=== PATIENT | female | born 1965 | race Caucasian/White ===

== ENCOUNTER 2017-02-22 20:31 | Inpatient (IN) | payer MEDICAID ==
[~2017-02-22] VITALS: Ht 170.2 cm; Wt 68.0 kg
[2017-02-22 20:40] VITALS: BP_SYST 161
[2017-02-22] MEDS ORDERED: NACL 0.9% 1,000 ML IV ONE (22:00)
[2017-02-22] MEDS ORDERED: LORazepam 2 MG/ML VIAL IVP ONE (22:00)
[2017-02-22] MEDS ORDERED: KETOROLAC TROMETHAMINE 30 MG VIAL IVP ONE (22:00)
[2017-02-22 22:25] LABS: BASOPHILS % (AUTO) 0.1 % (0.0-2.0); EOSINOPHILS % (AUTO) 0.3 % (0.0-4.0); HEMATOCRIT 32.5 % (36-48); HEMOGLOBIN 10.9 g/dL (12.0-16.0); LYMPHOCYTES # (AUTO) 1.3 K/uL (1.0-5.5); MEAN CORPUSCULAR HEMOGLOBIN 31 pg (27-31); MEAN CORPUSCULAR HGB CONC 34 % (32-36); MEAN CORPUSCULAR VOLUME 92 fL (79.0-98.0); MONOCYTES # (AUTO) 0.7 K/uL (0.0-1.0); MONOCYTES % (AUTO) 6.9 % (1.7-9.3); NEUTROPHILS # (AUTO) 8.4 K/uL (1.8-7.7); NEUTROPHILS % (AUTO) 80.7 % (40.0-70.0); PLATELET COUNT (AUTO) 406 K/uL (130-430); RED BLOOD CELL COUNT(AUTO) 3.52 MIL/uL (4.2-6.2); RED CELL DISTRIBUTION WIDTH 12.3 % (9.0-15.0); WHITE BLOOD COUNT (AUTO) 10.4 K/uL (4.8-10.8)
[2017-02-22] MEDS ORDERED: LORazepam 2 MG/ML VIAL (FOR ER USE) ONE (22:27)
[2017-02-22 22:29] LABS: CALCIUM 8.6 mg/dL (8.4-11.0); CREATININE 0.58 mg/dL (0.55-1.30); POTASSIUM 3.5 mmol/L (3.5-5.1)
[2017-02-22 22:32] LABS: PROTHROMBIN TIME 10.6 SECS (9.5-12.5)
[2017-02-22 22:34] LABS: ALBUMIN 2.8 g/dL (3.4-4.8); TOTAL BILIRUBIN 0.5 mg/dL (0.0-1.0); TOTAL PROTEIN, SERUM 7.6 g/dL (6.4-8.3)
[2017-02-22] MEDS ORDERED: PIPERACILLIN/TAZO 3.375 GM in NS 50 ML IV ONE (23:15)
[2017-02-22] MEDS ORDERED: CYM30 PO (23:50)
[2017-02-23] VITALS (7 sets, daily range): BP systolic 112–137
[2017-02-23] MEDS ORDERED: PIPERACILLIN/TAZOBACTAM 3.375 GM/VIAL (ZOSYN) IV ONE (00:06)
[2017-02-23] MEDS ORDERED: MINERAL OIL 30 ML UDC PO ONE (00:15)
[2017-02-23] MEDS ORDERED: ACETAMINOPHEN 325 MG TABLET PO PRN ×2 (00:15→00:45)
[2017-02-23] MEDS ORDERED: MAGNESIUM CITRATE 300 ML ORAL SOLUTION PO ONE (00:15)
[2017-02-23] MEDS: LORazepam 1 MG TABLET PO PRN (05:40)
[2017-02-23] MEDS ORDERED: PHENOL/MENTHOL 14.5 MG LOZENGE MM PRN (07:00)
[2017-02-23 07:57] LABS: IRON (SERUM) 20 mcg/dL (37-145); TOTAL IRON BIND. CAPACITY 189 ug/dL (250-450)
[2017-02-23] MEDS: DULoxetine HCL 30 MG CAPSULE.DR (CYMBALTA) PO SCH (08:40)
[2017-02-23] MEDS: DOCUSATE SODIUM 250 MG CAPSULE PO SCH ×2 (08:40→21:02)
[2017-02-23] MEDS: traMADol HCL HCL 50 MG TABLET (ULTRAM) PO PRN ×3 (08:51→21:02)
[2017-02-23] MEDS: AZITHROMYCIN 500 MG in NS 250 ML IV SCH (11:02)
[2017-02-23] MEDS ORDERED: ALBUTEROL SULFATE 0.083% 2.5 MG/3 ML VIAL.NEB INH PRN (13:15)
[2017-02-23] MEDS ORDERED: IPRATROPIUM BROM 0.5 MG/2.5 ML VIAL.NEB (ATROVENT) INH PRN (13:15)
[2017-02-23] MEDS: PIPERACILLIN/TAZO 3.375/DEX-IS 50 ML IV SCH ×2 (13:21→18:11)
[2017-02-23 15:22] LABS: BILIRUBIN,URINE NEGATIVE (NEGATIVE); BLOOD, URINE NEGATIVE (NEGATIVE); CLARITY/URINE CLEAR (CLEAR); COLOR,URINE YELLOW (YELLOW); GLUCOSE,URINE NEGATIVE (NEGATIVE); KETONES,URINE NEGATIVE (NEGATIVE); LEUKOCYTE ESTERASE ,URINE NEGATIVE (NEGATIVE); NITRITE, URINE NEGATIVE (NEGATIVE); PH,URINE 6.5 (5.0-8.0); PROTEIN URINE NEGATIVE (NEGATIVE)
[2017-02-23 15:49] LABS: BENZODIAZEPINE, URINE POSITIVE (NEG <=150); OPIATE, URINE POSITIVE (NEG <=100)
[2017-02-23 15:50] LABS: BARBITURATE, URINE NEGATIVE (NEG <=200); CANNABINOID, URINE NEGATIVE (NEG <=50); COCAINE, URINE NEGATIVE (NEG <=150); METHAMPHETAMINES SCREEN,URINE NEGATIVE (NEG <=500); PHENCYCLIDINE SCREEN,URINE NEGATIVE (NEG <=25); UR TRICYCLIC ANTIDEPRESSANTS NEGATIVE (NEG <=300); URINE AMPHETAMINE NEGATIVE (NEG <=500); URINE METHADONE NEGATIVE (NEG <=200); URINE OXYCODONE SCREEN NEGATIVE (NEG <=100); URINE PROPOXYPHENE SCREEN NEGATIVE (NEG <=300)
[2017-02-23] MEDS ORDERED: BISACODYL 5 MG TABLET.DR (DULCOLAX) PO ONE (17:00)
[2017-02-23] MEDS: ONDANSETRON HCL 4 MG/2 ML VIAL IVP PRN (17:42)
[2017-02-23] MEDS ORDERED: GOLYTELY / COLYTE SOLUTION 4 LITERS PO ONE (18:00)
[2017-02-23] MEDS: IPRATROPIUM BROM 0.5 MG/2.5 ML VIAL.NEB (ATROVENT) INH SCH (19:25)
[2017-02-23] MEDS: ALBUTEROL SULFATE 0.083% 2.5 MG/3 ML VIAL.NEB INH SCH (19:25)
[2017-02-23] MEDS: MULTIVITS,CA,MINERALS/IRON/FA 1 TABLET PO SCH (21:01)
[2017-02-23] MEDS ORDERED: IBUPROFEN 800 MG TABLET PO PRN (23:00)
[2017-02-24 00:03] VITALS: BP_SYST 133
[2017-02-24] MEDS: PIPERACILLIN/TAZO 3.375/DEX-IS 50 ML IV SCH ×5 (00:34→23:30)
[2017-02-24] MEDS: IPRATROPIUM BROM 0.5 MG/2.5 ML VIAL.NEB (ATROVENT) INH SCH ×4 (00:37→19:41)
[2017-02-24] MEDS: ALBUTEROL SULFATE 0.083% 2.5 MG/3 ML VIAL.NEB INH SCH ×4 (00:37→19:41)
[2017-02-24 04:14] VITALS: BP_SYST 114
[2017-02-24 06:25] LABS: BASOPHILS # (AUTO) 0.1 K/uL (0.0-0.2); BASOPHILS % (AUTO) 0.5 % (0.0-2.0); EOSINOPHILS # (AUTO) 0.1 K/uL (0.0-0.4); EOSINOPHILS % (AUTO) 0.9 % (0.0-4.0); HEMATOCRIT 30.9 % (36-48); HEMOGLOBIN 10.6 g/dL (12.0-16.0); LYMPHOCYTES # (AUTO) 1.8 K/uL (1.0-5.5); LYMPHOCYTES % (AUTO) 16.7 % (20.5-51.5); MEAN CORPUSCULAR HEMOGLOBIN 32 pg (27-31); MEAN CORPUSCULAR HGB CONC 34 % (32-36); MEAN CORPUSCULAR VOLUME 93 fL (79.0-98.0); MONOCYTES # (AUTO) 0.8 K/uL (0.0-1.0); MONOCYTES % (AUTO) 7.1 % (1.7-9.3); NEUTROPHILS # (AUTO) 8.2 K/uL (1.8-7.7); NEUTROPHILS % (AUTO) 74.8 % (40.0-70.0); PLATELET COUNT (AUTO) 393 K/uL (130-430); RED BLOOD CELL COUNT(AUTO) 3.34 MIL/uL (4.2-6.2); RED CELL DISTRIBUTION WIDTH 12.5 % (9.0-15.0)
[2017-02-24] MEDS ORDERED: MEPERIDINE HCL/PF 100 MG/ML AMP ONE ×2 (06:38)
[2017-02-24] MEDS ORDERED: SIMETHICONE 40 MG/0.6 ML ML ONE (06:39)
[2017-02-24] MEDS ORDERED: MIDAZOLAM HCL 5 MG/5 ML VIAL ONE ×2 (06:39)
[2017-02-24 06:50] LABS: ALBUMIN 2.3 g/dL (3.4-4.8); CREATININE 0.44 mg/dL (0.55-1.30); FREE T4 (FREE THYROXINE) 0.9 ng/dL (0.6-1.6); POTASSIUM 4.1 mmol/L (3.5-5.1); TOTAL BILIRUBIN 0.6 mg/dL (0.0-1.0); TOTAL PROTEIN, SERUM 7.4 g/dL (6.4-8.3)
[2017-02-24] MEDS ORDERED: MEPERIDINE HCL/PF 100 MG/ML AMP IV ONE ×2 (07:08→07:14)
[2017-02-24] MEDS ORDERED: MIDAZOLAM HCL 5 MG/5 ML VIAL IVP ONE ×5 (07:10→07:20)
[2017-02-24] MEDS ORDERED: SORBITOL 70% SOLUTION, 30 ML UDBTL PO ONE (07:45)
[2017-02-24 07:46] LABS: CALCIUM 8.7 mg/dL (8.4-11.0); THYROID STIMULATING HORMONE 0.23 uIu/mL (0.34-4.82)
[2017-02-24] MEDS: MULTIVITS,CA,MINERALS/IRON/FA 1 TABLET PO SCH ×2 (09:00→20:56)
[2017-02-24] MEDS: DULoxetine HCL 30 MG CAPSULE.DR (CYMBALTA) PO SCH (09:00)
[2017-02-24 09:25] VITALS: BP_SYST 118
[2017-02-24] MEDS: LACTULOSE 20 GM/30 ML UDC PO SCH ×4 (09:41→20:56)
[2017-02-24] MEDS: DOCUSATE SODIUM 250 MG CAPSULE PO SCH ×2 (09:41→20:56)
[2017-02-24] MEDS: ONDANSETRON HCL 4 MG/2 ML VIAL IVP PRN (09:41)
[2017-02-24] MEDS: POLYETHYLENE GLYCOL 3350, 17 GM/ POWD.PACK PO SCH ×4 (09:41→20:55)
[2017-02-24] MEDS: AZITHROMYCIN 500 MG in NS 250 ML IV SCH (09:53)
[2017-02-24] MEDS ORDERED: SUMAtriptan SUCCINATE 50 MG TABLET PO ONE (12:00)
[2017-02-24 12:07] VITALS: BP_SYST 117
[2017-02-24] MEDS: INDOMETHACIN 25 MG CAPSULE(INDOCIN) PO SCH ×2 (15:44→20:57)
[2017-02-24 16:15] VITALS: BP_SYST 120
[2017-02-24] MEDS ORDERED: BISACODYL 5 MG TABLET.DR (DULCOLAX) PO ONE (17:00)
[2017-02-24] MEDS: SOD FERRIC GLUC COMPLEX/SUC 125 MG in NS 100 ML IV SCH (17:59)
[2017-02-24] MEDS: traMADol HCL HCL 50 MG TABLET (ULTRAM) PO PRN (18:13)
[2017-02-24] MEDS ORDERED: MAGNESIUM CITRATE 300 ML ORAL SOLUTION PO ONE (19:00)
[2017-02-24 19:30] VITALS: BP_SYST 114
[2017-02-25 00:26] VITALS: BP_SYST 120
[2017-02-25] MEDS: IPRATROPIUM BROM 0.5 MG/2.5 ML VIAL.NEB (ATROVENT) INH SCH ×4 (00:54→19:39)
[2017-02-25] MEDS: ALBUTEROL SULFATE 0.083% 2.5 MG/3 ML VIAL.NEB INH SCH ×4 (00:55→19:39)
[2017-02-25] MEDS: traMADol HCL HCL 50 MG TABLET (ULTRAM) PO PRN ×2 (02:10→08:23)
[2017-02-25] MEDS: LORazepam 1 MG TABLET PO PRN ×2 (03:09→20:40)
[2017-02-25 04:07] VITALS: BP_SYST 110
[2017-02-25] MEDS: PIPERACILLIN/TAZO 3.375/DEX-IS 50 ML IV SCH ×4 (06:27→23:37)
[2017-02-25 07:12] LABS: BASOPHILS % (AUTO) 0.3 % (0.0-2.0); EOSINOPHILS # (AUTO) 0.1 K/uL (0.0-0.4); EOSINOPHILS % (AUTO) 1.1 % (0.0-4.0); HEMATOCRIT 28.2 % (36-48); HEMOGLOBIN 9.5 g/dL (12.0-16.0); LYMPHOCYTES # (AUTO) 1.5 K/uL (1.0-5.5); LYMPHOCYTES % (AUTO) 18.6 % (20.5-51.5); MEAN CORPUSCULAR HEMOGLOBIN 31 pg (27-31); MEAN CORPUSCULAR HGB CONC 34 % (32-36); MEAN CORPUSCULAR VOLUME 92 fL (79.0-98.0); MONOCYTES # (AUTO) 0.6 K/uL (0.0-1.0); MONOCYTES % (AUTO) 7.2 % (1.7-9.3); NEUTROPHILS # (AUTO) 5.9 K/uL (1.8-7.7); NEUTROPHILS % (AUTO) 72.8 % (40.0-70.0); PLATELET COUNT (AUTO) 386 K/uL (130-430); RED BLOOD CELL COUNT(AUTO) 3.09 MIL/uL (4.2-6.2); RED CELL DISTRIBUTION WIDTH 12.6 % (9.0-15.0)
[2017-02-25 07:25] LABS: WHITE BLOOD COUNT (AUTO) 8.1 K/uL (4.8-10.8)
[2017-02-25 07:27] LABS: CALCIUM 8.7 mg/dL (8.4-11.0); CREATININE 0.41 mg/dL (0.55-1.30); POTASSIUM 3.6 mmol/L (3.5-5.1)
[2017-02-25 08:16] VITALS: BP_SYST 136
[2017-02-25] MEDS: DOCUSATE SODIUM 250 MG CAPSULE PO SCH ×2 (08:23→20:39)
[2017-02-25] MEDS: INDOMETHACIN 25 MG CAPSULE(INDOCIN) PO SCH ×3 (08:23→20:41)
[2017-02-25] MEDS: MULTIVITS,CA,MINERALS/IRON/FA 1 TABLET PO SCH ×2 (08:23→20:39)
[2017-02-25] MEDS ORDERED: BENZONATATE 100 MG CAPSULE (TESSALON) PO PRN (09:30)
[2017-02-25] MEDS: AZITHROMYCIN 500 MG in NS 250 ML IV SCH (09:46)
[2017-02-25] MEDS ORDERED: BISACODYL 5 MG TABLET.DR (DULCOLAX) PO PRN (11:15)
[2017-02-25] MEDS ORDERED: BISACODYL 5 MG TABLET.DR (DULCOLAX) PO ONE ×2 (11:15→17:00)
[2017-02-25] MEDS ORDERED: BISACODYL 10 MG/SUPPOSITORY RC PRN (11:15)
[2017-02-25 11:57] VITALS: BP_SYST 117
[2017-02-25] MEDS ORDERED: LORazepam 2 MG/ML VIAL IM ONE (15:30)
[2017-02-25] MEDS: SOD FERRIC GLUC COMPLEX/SUC 125 MG in NS 100 ML IV SCH (15:55)
[2017-02-25] MEDS ORDERED: LORazepam 2 MG/ML VIAL ONE (16:13)
[2017-02-25] MEDS: ONDANSETRON HCL 4 MG/2 ML VIAL IVP PRN (16:14)
[2017-02-25 16:37] VITALS: BP_SYST 115
[2017-02-25] MEDS ORDERED: GOLYTELY / COLYTE SOLUTION 4 LITERS NG ONE (18:00)
[2017-02-25] MEDS ORDERED: MAGNESIUM CITRATE 300 ML ORAL SOLUTION PO ONE (19:00)
[2017-02-25 19:30] VITALS: BP_SYST 136
[2017-02-26] MEDS: IPRATROPIUM BROM 0.5 MG/2.5 ML VIAL.NEB (ATROVENT) INH SCH ×4 (01:00→19:00)
[2017-02-26] MEDS: ALBUTEROL SULFATE 0.083% 2.5 MG/3 ML VIAL.NEB INH SCH ×4 (01:00→19:00)
[2017-02-26 04:00] VITALS: BP_SYST 122
[2017-02-26] MEDS: PIPERACILLIN/TAZO 3.375/DEX-IS 50 ML IV SCH ×3 (05:59→18:08)
[2017-02-26] MEDS: LORazepam 1 MG TABLET PO PRN ×2 (06:04→15:05)
[2017-02-26 07:13] LABS: BASOPHILS % (AUTO) 0.6 % (0.0-2.0); EOSINOPHILS # (AUTO) 0.2 K/uL (0.0-0.4); EOSINOPHILS % (AUTO) 2.4 % (0.0-4.0); HEMOGLOBIN 10.9 g/dL (12.0-16.0); LYMPHOCYTES # (AUTO) 1.7 K/uL (1.0-5.5); LYMPHOCYTES % (AUTO) 23.8 % (20.5-51.5); MEAN CORPUSCULAR HEMOGLOBIN 31 pg (27-31); MEAN CORPUSCULAR HGB CONC 34 % (32-36); MEAN CORPUSCULAR VOLUME 92 fL (79.0-98.0); MONOCYTES # (AUTO) 0.5 K/uL (0.0-1.0); MONOCYTES % (AUTO) 7.7 % (1.7-9.3); NEUTROPHILS # (AUTO) 4.6 K/uL (1.8-7.7); NEUTROPHILS % (AUTO) 65.5 % (40.0-70.0); PLATELET COUNT (AUTO) 459 K/uL (130-430); RED BLOOD CELL COUNT(AUTO) 3.48 MIL/uL (4.2-6.2); RED CELL DISTRIBUTION WIDTH 12.5 % (9.0-15.0)
[2017-02-26 08:03] VITALS: BP_SYST 108
[2017-02-26] MEDS: MEPERIDINE HCL/PF 100 MG/ML AMP ONE ×4 (08:48→09:13)
[2017-02-26] MEDS: MIDAZOLAM HCL 5 MG/5 ML VIAL ONE ×5 (08:49→09:15)
[2017-02-26] MEDS ORDERED: MIDAZOLAM HCL 5 MG/5 ML VIAL ONE (08:49)
[2017-02-26] MEDS ORDERED: SIMETHICONE 40 MG/0.6 ML ML ONE (08:49)
[2017-02-26] MEDS: DOCUSATE SODIUM 250 MG CAPSULE PO SCH ×2 (09:00→20:15)
[2017-02-26] MEDS: MULTIVITS,CA,MINERALS/IRON/FA 1 TABLET PO SCH ×2 (09:00→20:16)
[2017-02-26] MEDS: INDOMETHACIN 25 MG CAPSULE(INDOCIN) PO SCH ×3 (09:00→20:15)
[2017-02-26] MEDS: AZITHROMYCIN 500 MG in NS 250 ML IV SCH (10:14)
[2017-02-26 10:22] LABS: HEPATITIS A AB, IgM Negative (Negative); HEPATITIS B CORE AB, IgM Negative (Negative); HEPATITIS B SURFACE AG Negative (Negative)
[2017-02-26] MEDS: ONDANSETRON HCL 4 MG/2 ML VIAL IVP PRN (10:39)
[2017-02-26 11:43] VITALS: BP_SYST 99
[2017-02-26] MEDS: traMADol HCL HCL 50 MG TABLET (ULTRAM) PO PRN ×2 (15:07→20:16)
[2017-02-26 15:39] VITALS: BP_SYST 125
[2017-02-26 16:25] LABS: ANTI NUCLEAR AB WITH REFLEX Negative (Negative)
[2017-02-26] MEDS: SOD FERRIC GLUC COMPLEX/SUC 125 MG in NS 100 ML IV SCH (16:27)
[2017-02-26 20:00] VITALS: BP_SYST 122
[2017-02-26 23:35] VITALS: BP_SYST 114
[2017-02-27] VITALS (7 sets, daily range): BP systolic 98–128
[2017-02-27] MEDS: PIPERACILLIN/TAZO 3.375/DEX-IS 50 ML IV SCH ×4 (00:43→17:59)
[2017-02-27] MEDS: ALBUTEROL SULFATE 0.083% 2.5 MG/3 ML VIAL.NEB INH SCH ×4 (01:00→19:00)
[2017-02-27] MEDS: IPRATROPIUM BROM 0.5 MG/2.5 ML VIAL.NEB (ATROVENT) INH SCH ×4 (01:00→19:00)
[2017-02-27 07:38] LABS: BASOPHILS % (AUTO) 0.6 % (0.0-2.0); EOSINOPHILS # (AUTO) 0.2 K/uL (0.0-0.4); EOSINOPHILS % (AUTO) 3.3 % (0.0-4.0); HEMOGLOBIN 11.2 g/dL (12.0-16.0); LYMPHOCYTES # (AUTO) 1.6 K/uL (1.0-5.5); LYMPHOCYTES % (AUTO) 28.3 % (20.5-51.5); MEAN CORPUSCULAR HEMOGLOBIN 31 pg (27-31); MEAN CORPUSCULAR HGB CONC 33 % (32-36); MEAN CORPUSCULAR VOLUME 93 fL (79.0-98.0); MONOCYTES # (AUTO) 0.5 K/uL (0.0-1.0); MONOCYTES % (AUTO) 8.8 % (1.7-9.3); NEUTROPHILS # (AUTO) 3.3 K/uL (1.8-7.7); PLATELET COUNT (AUTO) 513 K/uL (130-430); RED BLOOD CELL COUNT(AUTO) 3.64 MIL/uL (4.2-6.2); WHITE BLOOD COUNT (AUTO) 5.6 K/uL (4.8-10.8)
[2017-02-27 08:07] LABS: ALBUMIN 2.6 g/dL (3.4-4.8); CALCIUM 9.8 mg/dL (8.4-11.0); CREATININE 0.61 mg/dL (0.55-1.30); FREE T4 (FREE THYROXINE) 1.1 ng/dL (0.6-1.6); POTASSIUM 4.3 mmol/L (3.5-5.1); THYROID STIMULATING HORMONE 0.61 uIu/mL (0.34-4.82); TOTAL BILIRUBIN 0.4 mg/dL (0.0-1.0); TOTAL PROTEIN, SERUM 7.5 g/dL (6.4-8.3)
[2017-02-27] MEDS: MULTIVITS,CA,MINERALS/IRON/FA 1 TABLET PO SCH ×2 (09:46→21:52)
[2017-02-27] MEDS: INDOMETHACIN 25 MG CAPSULE(INDOCIN) PO SCH ×3 (09:47→21:53)
[2017-02-27] MEDS: LORazepam 1 MG TABLET PO PRN ×2 (09:47→21:53)
[2017-02-27] MEDS: DOCUSATE SODIUM 250 MG CAPSULE PO SCH ×2 (09:48→21:53)
[2017-02-27] MEDS: ONDANSETRON HCL 4 MG/2 ML VIAL IVP PRN (09:56)
[2017-02-27] MEDS: AZITHROMYCIN 500 MG in NS 250 ML IV SCH (10:04)
[2017-02-27 12:29] LABS: ANTI-SMOOTH MUSCLE AB 12 Units (0-19)
[2017-02-27 13:09] LABS: ALPHA-1-ANTITRYPSIN, S 300 mg/dL (90-200)
[2017-02-27 14:17] LABS: ATYPICAL pANCA <1:20 titer (Neg:<1:20); CYTOPLASMIC (C-ANCA) <1:20 titer (Neg:<1:20); CYTOPLASMIC (P-ANCA) <1:20 titer (Neg:<1:20)
[2017-02-27] MEDS ORDERED: PANTOPRAZOLE SODIUM 40 MG TAB PO ONE (16:30)
[2017-02-27] MEDS: SOD FERRIC GLUC COMPLEX/SUC 125 MG in NS 100 ML IV SCH (17:56)
[2017-02-27] MEDS: PANTOPRAZOLE SODIUM 40 MG TAB PO SCH (21:52)
[2017-02-28] MEDS: PIPERACILLIN/TAZO 3.375/DEX-IS 50 ML IV SCH ×3 (00:10→11:59)
[2017-02-28] MEDS: IPRATROPIUM BROM 0.5 MG/2.5 ML VIAL.NEB (ATROVENT) INH SCH ×3 (01:00→13:00)
[2017-02-28] MEDS: ALBUTEROL SULFATE 0.083% 2.5 MG/3 ML VIAL.NEB INH SCH ×3 (01:00→13:00)
[2017-02-28 04:24] VITALS: BP_SYST 100
[2017-02-28 08:19] VITALS: BP_SYST 138
[2017-02-28] MEDS: DOCUSATE SODIUM 250 MG CAPSULE PO SCH (09:01)
[2017-02-28] MEDS: INDOMETHACIN 25 MG CAPSULE(INDOCIN) PO SCH ×2 (09:01→15:00)
[2017-02-28] MEDS: LORazepam 1 MG TABLET PO PRN (09:01)
[2017-02-28] MEDS: PANTOPRAZOLE SODIUM 40 MG TAB PO SCH (09:01)
[2017-02-28] MEDS: MULTIVITS,CA,MINERALS/IRON/FA 1 TABLET PO SCH (09:01)
[2017-02-28 12:29] VITALS: BP_SYST 100
[2017-02-28 15:37] VITALS: BP_SYST 104
[2017-02-28] MEDS ORDERED: LEVO500T20 PO (15:44)
[2017-02-28] MEDS ORDERED: MULT-33 PO (15:48)
[2017-02-28] MEDS ORDERED: PRO40 PO (15:48)
[2017-02-28] MEDS ORDERED: LACT1CAP69 PO (15:48)
[2017-02-28] MEDS ORDERED: IPRA4AER INH (15:49)
[2017-03-05 16:09] LABS: DOPAMINE, 24 HR UR 204 ug/24 hr (0-510); DOPAMINE, UR 66 ug/L (Undefined); EPINEPHRINE, UR 1 ug/L (Undefined)
[2017-03-06 08:17] LABS: CORTISOL, URINARY FREE 16 ug/L (Undefined); CORTISOL, URINARY FREE 24HR 49 ug/24 hr (0-50)
== END 2017-02-28 16:30 | disposition home or self-care (01) | DRG 139 ==
LOC: SED 20:31 → STU 23:35 → SMU 02-26 08:11 → STU 02-26 11:07 → SMU 02-26 22:31
PROVIDERS: ADMIT Internal Medicine; ATTEND Internal Medicine
PROC: 0DB68ZX Excision of Stomach, Via Natural or Artificial Opening Endoscopic, Diagnostic (ICD-10-PCS; 2017-02-24)
PROC: 0DJD8ZZ Inspection of Lower Intestinal Tract, Via Natural or Artificial Opening Endoscopic (ICD-10-PCS; principal; 2017-02-24 07:00)
PROC: 0DB98ZX Excision of Duodenum, Via Natural or Artificial Opening Endoscopic, Diagnostic (ICD-10-PCS; 2017-02-24 07:00)
PROC: 0DJD8ZZ Inspection of Lower Intestinal Tract, Via Natural or Artificial Opening Endoscopic (ICD-10-PCS; 2017-02-26)
DX: J18.9 Pneumonia, unspecified organism (principal); E43 Unspecified severe protein-calorie malnutrition; K92.2 Gastrointestinal hemorrhage, unspecified; D50.9 Iron deficiency anemia, unspecified; F32.9 Major depressive disorder, single episode, unspecified; G43.909 Migraine, unspecified, not intractable, without status migrainosus; K59.09 Other constipation; K29.70 Gastritis, unspecified, without bleeding; K44.9 Diaphragmatic hernia without obstruction or gangrene; K64.8 Other hemorrhoids; Z87.891 Personal history of nicotine dependence; K29.80 Duodenitis without bleeding; Z82.49 Family history of ischemic heart disease and other diseases of the circulatory system; Z90.710 Acquired absence of both cervix and uterus; Z98.82 Breast implant status; F41.9 Anxiety disorder, unspecified; F90.9 Attention-deficit hyperactivity disorder, unspecified type; J44.9 Chronic obstructive pulmonary disease, unspecified; Z68.23 Body mass index [BMI] 23.0-23.9, adult
CPT/HCPCS: 36415; 43239; 45378; 71020-TC; 71250-TC; 76536-TC; 76700-TC; 80048; 80053; 80061; 80074; 80307; 81003; 82088; 82103; 82105; 82384; 82530; 83516; 83540-TC; 83550-TC; 83690-TC; 83735-TC; 83835; 84244; 84439; 84443-TC; 84480; 85025; 85610-TC; 85730-TC; 86038; 86256; 87040-TC; 87081; 88305; 88312; 88313; 94640; 94760; 96361; 96365; 96375; 99285; J0456; J1885; J2060; J2175; J2250; J2405; J2543; J2916; J7030; J7050